=== PATIENT | male | born 1950 | race Caucasian/White ===

== ENCOUNTER 2017-10-28 09:31 | Emergency (ER) | payer OTHER ==
[~2017-10-28] VITALS: Ht 175.3 cm; Wt 59.0 kg
[2017-10-28 11:53] VITALS: BP 118/69
== END 2017-10-28 11:59 | disposition home or self-care (01) ==
LOC: ER 09:35
DX: N39.0 Urinary tract infection, site not specified (principal); Z46.6 Encounter for fitting and adjustment of urinary device

== ENCOUNTER 2018-02-22 04:15 | Inpatient (IN) | payer OTHER ==
[~2018-02-22] VITALS: Ht 175.3 cm; Wt 104.5 kg
[~2018-02-22 04:15] MED LIST: LEVO500T21 PO; LISI-646 PO; MULTCAP45 PO
[2018-02-22] MEDS ORDERED: IOHEXOL 350 MG/ML 100ML IJ ONE (04:59)
[2018-02-22] MEDS ORDERED: CLINDAMYCIN 600MG IV 50 ML IV ONE (05:00)
[2018-02-22] MEDS ORDERED: SODIUM CHLORIDE 0.9% 3,000 ML IV ONE (05:15)
[2018-02-22 05:44] LABS: Basophils # (auto) 0 uL; Basophils % (auto) 0.5 % (0.0-2.0); Eosinophils # (auto) 0.2 uL; Eosinophils % (auto) 2.7 % (0.0-7.0); Hemoglobin 14.7 g/dL (13.5-17.5); Lymphocytes # (auto) 2.8 uL; Lymphocytes % (auto) 31.7 % (10.0-50.0); Mean Corpuscular Hemoglobin 29.8 pg (28.0-32.0); Mean Corpuscular Hgb Conc. 34.1 g/dL (32.0-36.0); Mean Corpuscular Volume 87.5 fL (80.0-100.0); Monocytes # (auto) 0.8 uL; Monocytes % (auto) 8.7 % (0.0-12.0); Neutrophils % (auto) 56.4 % (37.0-80.0); Nucleated Red Blood Cells % 0.1 %; Platelet Count (auto) 249 10^3/uL (140-450); Red Blood Cells 4.92 10^6/uL (4.5-5.90); White Blood Cell 8.8 10^3/uL (4.4-10.8)
[2018-02-22] MEDS ORDERED: fentaNYL CITRATE 100 MCG/2 ML VL IV ONE (06:00)
[2018-02-22 06:09] LABS: INR 0.89 (0.9-1.15); Prothrombin Time 9.6 sec (9.27-12.13)
[2018-02-22 06:12] LABS: Alanine Aminotransferase 26 U/L (16-61); Albumin 3.6 g/dL (3.4-5.0); Alkaline Phosphatase 91 U/L (45-117); Anion Gap 3 (5-15); Aspartate Aminotransferase 24 U/L (15-37); BUN/Creatinine Ratio 18.4; Bilirubin, Total 0.5 mg/dL (0.2-1.0); Blood Urea Nitrogen 34 mg/dL (7-18); Calcium 8.8 mg/dL (8.5-10.1); Carbon Dioxide 22 mmol/L (21-32); Chloride 110 mmol/L (98-107); GFR African American 47 mL/min; GFR Non-African American 39 mL/min; Glucose 96 mg/dL (74-106); Potassium 4.4 mmol/L (3.5-5.1); Sodium 135 mmol/L (136-145); Total Protein 7.5 g/dL (6.4-8.2)
[2018-02-22 07:03] LABS: Urine Bacteria FEW /hpf (None Seen); Urine Blood 3+ /uL (Negative); Urine Mucus FEW (None Seen); Urine WBC 333 /hpf (0 - 3); Urine WBC Clumps PRESENT /hpf (None Seen)
[2018-02-22] MEDS ORDERED: ONDANSETRON HCL 4 MG/2 ML VIAL IV PRN (09:45)
[2018-02-22] MEDS ORDERED: cloNIDine HCL 0.1 MG TAB PO PRN (09:45)
[2018-02-22] MEDS ORDERED: NITROGLYCERIN 0.4 MG SL TAB SL PRN (09:45)
[2018-02-22] MEDS ORDERED: ACETAMINOPHEN 325 MG TAB PO PRN (09:45)
[2018-02-22] MEDS ORDERED: SODIUM CHLORIDE 0.9% 2,000 ML IV ONE (09:45)
[2018-02-22] MEDS ORDERED: DOCUSATE SOD 100 MG CAP PO PRN (09:45)
[2018-02-22] MEDS ORDERED: LEVOFLOXACIN 500MG 100 ML IV ONE (09:45)
[2018-02-22] MEDS ORDERED: MORPHINE SULF INJ 2 MG/ML SYRINGE 1ML IV PRN ×2 (09:45)
[2018-02-22] MEDS ORDERED: VANCOMYCIN PER PHARMACY 0 MG IV SCH (09:45)
[2018-02-22] MEDS ORDERED: DEXTROSE (50%) 50ML SYRG IV PRN (09:45)
[2018-02-22] MEDS ORDERED: HYDROcodone-ACET 5/325MG TAB PO PRN (09:45)
[2018-02-22] MEDS ORDERED: TEMAZEPAM 15 MG CAP PO PRN (09:45)
[2018-02-22] MEDS: InsuLIN REG 1unit/0.01ml Soln (100units/ml) SC SCH ×3 (11:30→21:53)
[2018-02-22] MEDS: MULTIPLE VITAMIN TAB PO SCH (12:08)
[2018-02-22] MEDS: SODIUM CHLORIDE 0.9% 1,000 ML IV SCH ×2 (12:59→19:01)
[2018-02-22] MEDS: VANCOMYCIN 1GM/250ML 250 ML IV SCH (13:18)
[2018-02-22] MEDS: ACCU-CHEK COMFORT CURVE STRIP VI SCH ×3 (13:18→21:53)
[2018-02-23] MEDS: SODIUM CHLORIDE 0.9% 1,000 ML IV SCH ×3 (02:57→23:07)
[2018-02-23] MEDS: VANCOMYCIN 1GM/250ML 250 ML IV SCH ×2 (04:57→23:03)
[2018-02-23] MEDS: InsuLIN REG 1unit/0.01ml Soln (100units/ml) SC SCH ×4 (06:46→22:00)
[2018-02-23] MEDS: ACCU-CHEK COMFORT CURVE STRIP VI SCH ×4 (06:46→23:07)
[2018-02-23 06:58] LABS: Basophils # (auto) 0 uL; Basophils % (auto) 0.8 % (0.0-2.0); Eosinophils # (auto) 0.2 uL; Eosinophils % (auto) 2.6 % (0.0-7.0); Hematocrit 41.4 % (41.0-53.0); Hemoglobin 14.1 g/dL (13.5-17.5); Lymphocytes # (auto) 1.3 uL; Lymphocytes % (auto) 20.7 % (10.0-50.0); Mean Corpuscular Hemoglobin 29.7 pg (28.0-32.0); Mean Corpuscular Hgb Conc. 34.1 g/dL (32.0-36.0); Mean Corpuscular Volume 87.1 fL (80.0-100.0); Monocytes # (auto) 0.6 uL; Monocytes % (auto) 9.4 % (0.0-12.0); Neutrophils # (auto) 4.1 uL; Neutrophils % (auto) 66.5 % (37.0-80.0); Nucleated Red Blood Cells % 0.1 %; Platelet Count (auto) 203 10^3/uL (140-450); Red Blood Cells 4.76 10^6/uL (4.5-5.90); Red Cell Distribution Width 13.9 % (11.8-14.3); White Blood Cell 6.2 10^3/uL (4.4-10.8)
[2018-02-23 07:40] LABS: Albumin 3.1 g/dL (3.4-5.0); BUN/Creatinine Ratio 14.2; Bilirubin, Total 0.7 mg/dL (0.2-1.0); Calcium 8.4 mg/dL (8.5-10.1); Total Protein 6.8 g/dL (6.4-8.2)
[2018-02-23] MEDS: LISINOPRIL 20 MG TAB PO SCH (09:30)
[2018-02-23] MEDS: LEVOFLOXACIN 250MG 50 ML IV SCH (09:30)
[2018-02-23] MEDS: MULTIPLE VITAMIN TAB PO SCH (09:30)
[2018-02-23 19:00] VITALS: BP 121/62
[2018-02-23 21:34] VITALS: BP 121/62
[2018-02-24] MEDS: SODIUM CHLORIDE 0.9% 1,000 ML IV SCH ×2 (04:06→12:42)
[2018-02-24 05:00] VITALS: BP 128/65
[2018-02-24] MEDS: ACCU-CHEK COMFORT CURVE STRIP VI SCH ×2 (06:30→11:30)
[2018-02-24] MEDS: InsuLIN REG 1unit/0.01ml Soln (100units/ml) SC SCH ×2 (06:30→11:30)
[2018-02-24 07:57] VITALS: BP 118/66
[2018-02-24] MEDS: MULTIPLE VITAMIN TAB PO SCH (09:57)
[2018-02-24] MEDS: LEVOFLOXACIN 250MG 50 ML IV SCH (09:57)
[2018-02-24] MEDS: LISINOPRIL 20 MG TAB PO SCH (09:58)
[2018-02-24 12:23] VITALS: BP 129/74
== END 2018-02-24 15:41 | disposition home or self-care (01) | DRG 872 ==
LOC: ER 04:19 → TELE 04:20 → TELE-EAST 02-23 18:59
PROVIDERS: ADMIT Internal Medicine; ATTEND Internal Medicine
DX: A41.9 Sepsis, unspecified organism (principal); N39.0 Urinary tract infection, site not specified; E87.1 Hypo-osmolality and hyponatremia; J98.11 Atelectasis; N17.9 Acute kidney failure, unspecified; R31.9 Hematuria, unspecified; N18.3 Chronic kidney disease, stage 3 (moderate); I12.9 Hypertensive chronic kidney disease with stage 1 through stage 4 chronic kidney disease, or unspecified chronic kidney disease; S40.012A Contusion of left shoulder, initial encounter; N21.0 Calculus in bladder; E11.21 Type 2 diabetes mellitus with diabetic nephropathy; E11.22 Type 2 diabetes mellitus with diabetic chronic kidney disease; N40.0 Benign prostatic hyperplasia without lower urinary tract symptoms; W19.XXXA Unspecified fall, initial encounter; Y93.89 Activity, other specified; Y92.89 Other specified places as the place of occurrence of the external cause; Z83.3 Family history of diabetes mellitus; Z91.81 History of falling; Z88.0 Allergy status to penicillin; Z88.2 Allergy status to sulfonamides; Z79.899 Other long term (current) drug therapy
CPT/HCPCS: 36415; 70450; 71045; 71260; 72125; 73000; 73060; 74177; 80053; 81001; 82962; 83036; 83605; 83880; 84443; 84484; 85025; 85379; 85610; 85730; 86850; 86900; 86901; 87040; 87081; 87086; 93005; 93306; 93886; 93970; 96361; 96365; J1956; J3490

== ENCOUNTER 2020-07-23 13:54 | Inpatient (IN) | payer OTHER ==
[~2020-07-23] VITALS: Ht 175.3 cm; Wt 103.0 kg
[~2020-07-23 13:54] MED LIST changes: -LEVO500T21 PO; -LISI-646 PO; +LISI20TA28 PO
[2020-07-23] MEDS ORDERED: SODIUM CHLORIDE 0.9% 500 ML IVB ONE (14:15)
[2020-07-23 14:42] LABS: Basophils # (auto) 0 10 ^3/uL (0-0.2); Basophils % (auto) 0.2 % (0.0-2.0); Eosinophils # (auto) 0 10 ^3/uL (0-0.8); Eosinophils % (auto) 0.1 % (0.0-7.0); Hematocrit 51.7 % (41.0-53.0); Hemoglobin 17.6 g/dL (13.5-17.5); Lymphocytes # (auto) 0.9 10 ^3/uL (0.4-5.4); Lymphocytes % (auto) 7.2 % (10.0-50.0); Mean Corpuscular Hemoglobin 29.5 pg (28.0-32.0); Mean Corpuscular Volume 86.6 fL (80.0-100.0); Monocytes # (auto) 0.5 10 ^3/uL (0-1.3); Monocytes % (auto) 3.9 % (0.0-12.0); Neutrophils # (auto) 10.9 10 ^3/uL (1.6-8.6); Neutrophils % (auto) 88.6 % (37.0-80.0); Nucleated Red Blood Cells % 0.2 %; Red Blood Cells 5.97 10^6/uL (4.5-5.90); Red Cell Distribution Width 13.8 % (11.8-14.3); White Blood Cell 12.3 10^3/uL (4.4-10.8)
[2020-07-23 15:15] LABS: Albumin 3.6 g/dL (3.4-5.0); Anion Gap 8 (5-15); Blood Alcohol < 3.0 mg/dL (0-5); Blood Urea Nitrogen 25 mg/dL (7-18); Calcium 8.7 mg/dL (8.5-10.1); Carbon Dioxide 22 mmol/L (21-32); Chloride 109 mmol/L (98-107); Glucose 106 mg/dL (74-106); Magnesium 2.5 mg/dL (1.6-2.6); Potassium 4.1 mmol/L (3.5-5.1); Sodium 139 mmol/L (136-145)
[2020-07-23 15:22] LABS: Alanine Aminotransferase 31 U/L (16-61); Alkaline Phosphatase 146 U/L (45-117); Aspartate Aminotransferase 34 U/L (15-37); BUN/Creatinine Ratio 18.2; Bilirubin, Total 0.6 mg/dL (0.2-1.0); GFR African American 66 mL/min; GFR Non-African American 54 mL/min
[2020-07-23] MEDS ORDERED: ACETAMINOPHEN 500 MG TAB PO PRN (18:30)
[2020-07-23] MEDS ORDERED: DOCUSATE SOD 100 MG CAP PO PRN (18:30)
[2020-07-23] MEDS ORDERED: MORPHINE SULFATE INJECTION 2 MG/ML SYRG IV PRN ×2 (18:30)
[2020-07-23] MEDS ORDERED: HYDROcodone-ACET 5/325MG TAB PO PRN (18:30)
[2020-07-23] MEDS ORDERED: NITROGLYCERIN 0.4 MG SL TAB SL PRN (18:30)
[2020-07-23] MEDS ORDERED: ONDANSETRON HCL 4 MG/2 ML VIAL IV PRN (18:30)
[2020-07-23] MEDS ORDERED: DEXTROSE (50%) 50ML SYRG IV PRN (18:30)
[2020-07-23] MEDS ORDERED: ASPI-498 PO (19:38)
[2020-07-23] MEDS ORDERED: CHOL20007 PO (19:38)
[2020-07-23] MEDS ORDERED: METF-370 PO (19:38)
[2020-07-23] MEDS: levoFLOXacin 500MG 100 ML IV SCH (20:00)
[2020-07-23] MEDS: SODIUM CHLORIDE 0.9% 1,000 ML IV SCH (20:00)
[2020-07-23 20:05] LABS: Urine Bacteria FEW /hpf (None Seen); Urine Blood 1+ /uL (Negative); Urine Hyaline Cast FEW /lpf (0 - 2); Urine Mucus FEW (None Seen); Urine Specific Gravity 1.025 (1.001-1.035); Urine WBC 6 /hpf (0 - 3)
[2020-07-23] MEDS: ACCU-CHEK COMFORT CURVE STRIP VI SCH (22:53)
[2020-07-23] MEDS: InsuLIN REG 1unit/0.01ml Soln (100units/ml) SC SCH (22:53)
[2020-07-24 05:00] VITALS: BP 143/77
[2020-07-24] MEDS: SODIUM CHLORIDE 0.9% 1,000 ML IV SCH ×2 (05:00→21:45)
[2020-07-24] MEDS: InsuLIN REG 1unit/0.01ml Soln (100units/ml) SC SCH ×4 (06:48→22:00)
[2020-07-24] MEDS: ACCU-CHEK COMFORT CURVE STRIP VI SCH ×4 (06:49→22:00)
[2020-07-24 09:00] VITALS: BP 132/69
[2020-07-24] MEDS: PANTOPRAZOLE 40 MG TAB PO SCH (09:53)
[2020-07-24 13:00] VITALS: BP 140/67
[2020-07-24 17:00] VITALS: BP 131/74
[2020-07-24] MEDS: levoFLOXacin 500MG 100 ML IV SCH (17:44)
[2020-07-24 20:00] VITALS: BP 129/66
[2020-07-24 22:00] VITALS: BP 129/66
[2020-07-24 22:18] LABS: Basophils # (auto) 0 10 ^3/uL (0-0.2); Basophils % (auto) 0.4 % (0.0-2.0); Eosinophils # (auto) 0.1 10 ^3/uL (0-0.8); Eosinophils % (auto) 1.4 % (0.0-7.0); Hematocrit 42.5 % (41.0-53.0); Hemoglobin 14.6 g/dL (13.5-17.5); Lymphocytes # (auto) 1.4 10 ^3/uL (0.4-5.4); Mean Corpuscular Hemoglobin 29.5 pg (28.0-32.0); Mean Corpuscular Hgb Conc. 34.3 g/dL (32.0-36.0); Mean Corpuscular Volume 85.8 fL (80.0-100.0); Monocytes # (auto) 0.6 10 ^3/uL (0-1.3); Monocytes % (auto) 8.4 % (0.0-12.0); Neutrophils # (auto) 4.7 10 ^3/uL (1.6-8.6); Neutrophils % (auto) 68.8 % (37.0-80.0); Nucleated Red Blood Cells % 0.2 %; Red Blood Cells 4.95 10^6/uL (4.5-5.90); Red Cell Distribution Width 13.8 % (11.8-14.3); White Blood Cell 6.9 10^3/uL (4.4-10.8)
[2020-07-24] MEDS: HEPARIN SODIUM (PORCINE) 5000 UNITS/ML 1ML VIAL SC SCH (22:33)
[2020-07-25 05:00] VITALS: BP 126/74
[2020-07-25] MEDS: InsuLIN REG 1unit/0.01ml Soln (100units/ml) SC SCH ×4 (05:44→21:11)
[2020-07-25] MEDS: ACCU-CHEK COMFORT CURVE STRIP VI SCH ×4 (05:45→21:12)
[2020-07-25 06:36] LABS: Basophils # (auto) 0 10 ^3/uL (0-0.2); Basophils % (auto) 0.2 % (0.0-2.0); Eosinophils # (auto) 0.1 10 ^3/uL (0-0.8); Eosinophils % (auto) 1.4 % (0.0-7.0); Hematocrit 44.3 % (41.0-53.0); Hemoglobin 15.3 g/dL (13.5-17.5); Lymphocytes # (auto) 1.3 10 ^3/uL (0.4-5.4); Lymphocytes % (auto) 18.9 % (10.0-50.0); Mean Corpuscular Hemoglobin 29.9 pg (28.0-32.0); Mean Corpuscular Hgb Conc. 34.5 g/dL (32.0-36.0); Mean Corpuscular Volume 86.6 fL (80.0-100.0); Monocytes # (auto) 0.5 10 ^3/uL (0-1.3); Monocytes % (auto) 7.5 % (0.0-12.0); Neutrophils # (auto) 4.8 10 ^3/uL (1.6-8.6); Nucleated Red Blood Cells % 0.3 %; Red Blood Cells 5.12 10^6/uL (4.5-5.90); Red Cell Distribution Width 13.6 % (11.8-14.3); White Blood Cell 6.6 10^3/uL (4.4-10.8)
[2020-07-25 06:52] LABS: Calcium 8.8 mg/dL (8.5-10.1); Potassium 5.2 mmol/L (3.5-5.1)
[2020-07-25] MEDS: SODIUM CHLORIDE 0.9% 1,000 ML IV SCH ×3 (07:45→21:11)
[2020-07-25 08:00] VITALS: BP_SYST 135; BP_SYST 144; BP_DIAS 69; BP_DIAS 84
[2020-07-25] MEDS: PANTOPRAZOLE 40 MG TAB PO SCH (09:19)
[2020-07-25] MEDS: HEPARIN SODIUM (PORCINE) 5000 UNITS/ML 1ML VIAL SC SCH ×2 (09:23→21:11)
[2020-07-25] MEDS ORDERED: LEVO500T31 PO (16:15)
[2020-07-25 17:00] VITALS: BP 131/74
[2020-07-25] MEDS: levoFLOXacin 500MG 100 ML IV SCH (18:25)
[2020-07-25] MEDS ORDERED: LORazepam 2MG/ML-1ML VIAL IV PRN (21:00)
[2020-07-25 22:00] VITALS: BP 118/68
[2020-07-26 05:00] VITALS: BP 138/83
[2020-07-26] MEDS: SODIUM CHLORIDE 0.9% 1,000 ML IV SCH (06:11)
[2020-07-26] MEDS: ACCU-CHEK COMFORT CURVE STRIP VI SCH ×2 (06:11→12:55)
[2020-07-26] MEDS: InsuLIN REG 1unit/0.01ml Soln (100units/ml) SC SCH ×2 (06:11→11:30)
[2020-07-26 07:10] LABS: Basophils # (auto) 0 10 ^3/uL (0-0.2); Basophils % (auto) 0.5 % (0.0-2.0); Eosinophils # (auto) 0.1 10 ^3/uL (0-0.8); Hematocrit 44.9 % (41.0-53.0); Hemoglobin 15.3 g/dL (13.5-17.5); Lymphocytes # (auto) 1.4 10 ^3/uL (0.4-5.4); Lymphocytes % (auto) 22.6 % (10.0-50.0); Mean Corpuscular Hemoglobin 29.3 pg (28.0-32.0); Mean Corpuscular Hgb Conc. 34.2 g/dL (32.0-36.0); Mean Corpuscular Volume 85.6 fL (80.0-100.0); Monocytes # (auto) 0.5 10 ^3/uL (0-1.3); Monocytes % (auto) 7.8 % (0.0-12.0); Neutrophils # (auto) 4.2 10 ^3/uL (1.6-8.6); Neutrophils % (auto) 68.1 % (37.0-80.0); Nucleated Red Blood Cells % 0.2 %; Red Blood Cells 5.25 10^6/uL (4.5-5.90); Red Cell Distribution Width 13.7 % (11.8-14.3); White Blood Cell 6.1 10^3/uL (4.4-10.8)
[2020-07-26 07:20] LABS: Calcium 9.1 mg/dL (8.5-10.1); Potassium 4.2 mmol/L (3.5-5.1)
[2020-07-26 07:23] LABS: BUN/Creatinine Ratio 13.2
[2020-07-26 09:00] VITALS: BP 138/75
[2020-07-26] MEDS: PANTOPRAZOLE 40 MG TAB PO SCH (09:36)
[2020-07-26] MEDS: HEPARIN SODIUM (PORCINE) 5000 UNITS/ML 1ML VIAL SC SCH (09:41)
[2020-07-26] MEDS ORDERED: IOHEXOL 350 MG/ML 100ML IJ ONE (12:48)
[2020-07-26 13:29] VITALS: BP 124/71
[2020-07-26] MEDS ORDERED: IODIXANOL 320MG/ML 100ML BTL IV ONE (13:36)
[2020-07-26 17:00] VITALS: BP 128/78
== END 2020-07-26 19:55 | disposition home or self-care (01) | DRG 312 ==
LOC: EDBD 13:54 → ER 13:54 → TELE 13:55 → TELE-CENTR 07-24 05:00
PROVIDERS: ADMIT Nurse Practitioner Acute Care; ATTEND Internal Medicine
DX: R55 Syncope and collapse (principal); N17.0 Acute kidney failure with tubular necrosis; N39.0 Urinary tract infection, site not specified; D72.829 Elevated white blood cell count, unspecified; E66.9 Obesity, unspecified; E86.0 Dehydration; H57.02 Anisocoria; N18.2 Chronic kidney disease, stage 2 (mild); N40.0 Benign prostatic hyperplasia without lower urinary tract symptoms; Z20.822 Contact with and (suspected) exposure to COVID-19; I13.10 Hypertensive heart and chronic kidney disease without heart failure, with stage 1 through stage 4 chronic kidney disease, or unspecified chronic kidney disease; E11.22 Type 2 diabetes mellitus with diabetic chronic kidney disease; F17.200 Nicotine dependence, unspecified, uncomplicated; Z79.84 Long term (current) use of oral hypoglycemic drugs; Z80.7 Family history of other malignant neoplasms of lymphoid, hematopoietic and related tissues; Z87.442 Personal history of urinary calculi; Z88.0 Allergy status to penicillin; Z88.2 Allergy status to sulfonamides
CPT/HCPCS: 36415; 51702; 70450; 70498; 70551; 71045; 71250; 80048; 80053; 80320; 81001; 82962; 83036; 83735; 84484; 85025; 85379; 87040; 87086; 87088; 87186; 87426; 93005; 93306; 93886; 93970; 95819; 96361; 96365; G0378; J1956; J2405; Q9967

== ENCOUNTER 2022-06-22 08:07 | Emergency (ER) | payer OTHER ==
[~2022-06-22] VITALS: Ht 175.3 cm; Wt 101.8 kg
[~2022-06-22 08:07] MED LIST changes: +ASPI-498 PO; +CHOL20007 PO; +LEVO500T31 PO; +METF-370 PO; -MULTCAP45 PO
[2022-06-22] MEDS ORDERED: EPINEPHrine HCL 1 MG/10 ML SYRG IV ONE (08:08)
[2022-06-22] MEDS ORDERED: SODIUM BICARBONATE 8.4% INJ 50ML SYRINGE IV ONE (08:08)
[2022-06-22] MEDS ORDERED: CALCIUM CHLOR(10%) 100MG/ML 10ML SYRINGE IV ONE (08:08)
== END 2022-06-22 11:28 ==
LOC: EDBD 08:07 → ER 08:07
DX: I46.9 Cardiac arrest, cause unspecified (principal); E11.9 Type 2 diabetes mellitus without complications; I10 Essential (primary) hypertension; Z88.0 Allergy status to penicillin; Z88.2 Allergy status to sulfonamides; V43.52XA Car driver injured in collision with other type car in traffic accident, initial encounter; Y93.89 Activity, other specified; Y92.89 Other specified places as the place of occurrence of the external cause; Y99.8 Other external cause status
CPT/HCPCS: 92950; 99291; J0171